=== PATIENT | female | born 1955 | race Caucasian/White ===

== ENCOUNTER → 2018-05-04 | Outpatient (CLI) | payer OTHER ==
--- NOTE | 2018-05-04 10:48 | 2DMMODE ---
[place] [address] 2 D/M-MODE ECHOCARDIOGRAM Name: BRITTNY YUNG Room: [facility]#: [id number] Admission: 05/04/18 Attend Phys: Lino Askew, Discharge: Date of : 55 Date of Service: 05/04/18 1048 Report #: [id number] THIS REPORT FOR: //name// APPROVED REPORT Study performed: 05/04/2018 09:53:02 EXAM: Comprehensive 2D, Doppler, and color-flow Echocardiogram Status: routine BSA: 1.94 HR: 82 bpm BP: 105/60 mmHg Other Information Study Quality: Good Technically limited study due to Breast Implants. Indications Palpitations 2D Dimensions IVSd: 12.77 (7-11mm) LVOT Diam: 19.90 (18-24mm) LVDd: 41.16 mm PWd: 10.39 (7-11mm) Ascending Ao: 28.76 (22-36mm) LVDs: 23.26 (25-40mm) Aortic Root: 27.14 mm Volumes Left Atrial Volume (Systole) LA ESV Index: 10.40 mL/m2 Aortic Valve AoV Peak Enoc.: 0.78 m/s AO Peak Gr.: 2.45 mmHg LVOT Max P.67 mmHg AO Mean Gr.: 1.32 mmHg LVOT Mean P.09 mmHg LVOT Max V: 0.96 m/s AO V2 VTI: 13.98 cm LVOT Mean V: 0.69 m/s BLAKE (VTI): 4.80 cm2 LVOT V1 VTI: 21.59 cm Mitral Valve E/A Ratio: 1.76 MV Decel. Time: 277.64 ms MV E Max Enoc.: 0.52 m/[place] [address] 2 D/M-MODE [facility]OCARDIOGRAM [id number] Admission: 05/04/18 Attend Phys: Lino Askew, Discharge: Date of : 55 Date of Service: 05/04/18 1048 Report #: [id number] MV PHT: 80.52 ms MVA (PHT): 2.73 cm2 TDI E/Lateral E': 8.67 E/Medial E': 8.67 Medial E' Enoc.: 0.06 m/s Lateral E' Enoc.: 0.06 m/s Pulmonary Valve PV Peak Enoc.: 0.78 m/s PV Peak Gr.: 2.45 mmHg Left Ventricle The left ventricle is normal size. There is normal LV segmental wall motion. There is normal left ventricular wall thickness. Left ventricular systolic function is normal. The left ventricular ejection fraction is within the normal range. LVEF is 55-60%. The left ventricular diastolic function is normal. Right Ventricle The right ventricle is normal size. The right ventricular systolic function is normal. Atria The left atrium size is normal. The right atrium size is normal. Aortic Valve The aortic valve is normal in structure. No aortic regurgitation is present. There is no aortic valvular stenosis. Mitral Valve The mitral valve is normal in structure. There is no mitral valve regurgitation noted. No evidence of mitral valve stenosis. Tricuspid Valve The tricuspid valve is normal in structure. There is no tricuspid valve regurgitation noted. Pulmonic Valve The pulmonary valve is normal in structure. There is no pulmonic valvular regurgitation. Great Vessels The aortic root is normal in size. IVC is normal in size and collapses >50% [place] [address] 2 D/M-MODE ECHOCARDIOGRAM Name: BRITTNY YUNG Room: [facility] Brennon#: [id number] Admission: 05/04/18 Attend Phys: Lino Askew, Discharge: Date of : 55 Date of Service: 05/04/18 1048 Report #: [id number] Pericardium There is no pericardial effusion. <Conclusion> The left ventricle is normal size. There is normal left ventricular wall thickness. Left ventricular systolic function is normal. The left ventricular ejection fraction is within the normal range. LVEF is 55-60%. The left ventricular diastolic function is normal. The right ventricle is normal size. The left atrium size is normal. The aortic valve is normal in structure. The mitral valve is normal in structure. The tricuspid valve is normal in structure. IVC is normal in size and collapses >50% with inspiration. There is no pericardial effusion. There is normal LV segmental wall motion. <ELECTRONICALLY SIGNED> By: Mack Sheth MD, FACC 05/04/18 1048 1048 1048 Mack Sheth MD, FACC /INF
== END ==
LOC: M.CRD 08:00
DX: R00.2 Palpitations (principal); Z88.5 Allergy status to narcotic agent; Z88.1 Allergy status to other antibiotic agents

== ENCOUNTER 2019-04-30 09:08 | Emergency (ER) | payer OTHER ==
[~2019-04-30] VITALS: Ht 175.3 cm; Wt 74.8 kg
[2019-04-30 09:43] LABS: ABSOLUTE EOSINOPHILS 0.1 thou/uL (0.0-0.7); ABSOLUTE LYMPHOCYTES 1.4 thou/uL (0.8-5.3); ABSOLUTE MONOCYTES 0.6 thou/uL (0.0-1.2); ABSOLUTE NEUTROPHILS 4.5 thou/uL (1.6-8.1); BASOPHILS 0.6 %; EOSINOPHILS 1.7 %; HEMATOCRIT 46.7 % (37.0-47.0); HEMOGLOBIN 15.9 gm/dL (12.0-15.0); LYMPHOCYTES 21.1 %; MCH 33.3 pg (26.0-34.0); MCHC 34.1 g/dL (28.0-37.0); MCV 97.6 fL (80.0-100.0); MONOCYTES 8.4 %; MPV 8.2 fl. (7.2-11.1); NUCLEATED RBCS 0 /100WBC; PLATELET COUNT* 302 thou/uL (150-400); POLYS 68.2 %; RBC 4.79 mil/uL (4.20-5.00); RDW-CV 13.7 % (10.5-14.5); WBC 6.6 thou/uL (4.0-11.0)
[2019-04-30 09:52] LABS: CALCIUM 9.1 mg/dL (8.5-10.1); CREATININE 0.5 mg/dL (0.6-1.3); POTASSIUM 4.1 mmol/L (3.5-5.1)
[2019-04-30 09:54] LABS: APTT 28.3 Seconds (25.0-31.3); PROTIME 10.4 Seconds (9.20-11.50)
[2019-04-30 09:56] LABS: ALBUMIN 3.5 g/dL (3.4-5.0); TOTAL BILIRUBIN 0.4 mg/dL (<0.1-1.0); TOTAL PROTEIN 7.2 g/dL (6.4-8.2)
[2019-04-30] MEDS ORDERED: PROTONIX40 M2 PO (11:01)
[2019-04-30] MEDS ORDERED: IRBESARTAN-HCT1 EAC1 PO (11:02)
[2019-04-30] MEDS ORDERED: LEVO-T75 MCG PO (11:02)
[2019-04-30] MEDS ORDERED: NORCO 10-325 T1 EACH PO (11:03)
[2019-04-30] MEDS ORDERED: NORVASC 2.5 MG2.5 M1 PO (11:04)
[2019-04-30] MEDS ORDERED: SINGULAIR 10 MG10 M1 PO (11:04)
[2019-04-30] MEDS ORDERED: QVAR REDIHALE10.6 G1 (11:05)
[2019-04-30] MEDS ORDERED: CLONAZEPAM 0.50.5 M1 PO (11:05)
[2019-04-30] MEDS ORDERED: VENLAFAXINE HCL75 M2 PO (11:05)
[2019-04-30] MEDS ORDERED: MELOXICAM15 MG PO (11:06)
[2019-04-30] MEDS ORDERED: DETROL LA2 MG PO (11:06)
[2019-04-30] MEDS ORDERED: STIOLTO RESPIMAT4 GM (11:06)
[2019-04-30] MEDS ORDERED: CHILDREN'S ZYRT10 M1 PO (11:07)
[2019-04-30 11:33] VITALS: BP 127/73
--- NOTE | 2019-04-30 16:49 | EKG ---
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 04/30/19 1648 2 2 Mack Sheth MD, FACC /EPI
== END 2019-04-30 11:34 | disposition home or self-care (01) ==
LOC: M.ERS 09:08
PROVIDERS: Family Medicine
DX: R55 Syncope and collapse (principal); R42 Dizziness and giddiness; I10 Essential (primary) hypertension; J45.909 Unspecified asthma, uncomplicated; E03.9 Hypothyroidism, unspecified; Z90.13 Acquired absence of bilateral breasts and nipples; Z79.899 Other long term (current) drug therapy; Z85.3 Personal history of malignant neoplasm of breast